=== PATIENT | female | born 1995 | race Caucasian/White ===

== ENCOUNTER 2018-06-21 22:26 | Emergency (ER) | payer MEDICAID ==
--- NOTE | 2018-06-21 23:14 | ED Physician Chart ---
ED Chief Complaint/HPI - Patient Information Date Seen:: 06/21/18 Time Seen:: 23:00 Chief Complaint:: fever, sore throat and cough History of Present Illness:: Patient has had fever, sore throat and nonproductive cough for 3 days. Her temperature was up to 101 yesterday. No vomiting. Patient had 5-6 times diarrhea today. Allergies:: Allergies Allergy/AdvReac Type Severity Reaction Status Date / Time Sulfa (Sulfonamide Allergy Verified 06/21/18 22:27 Antibiotics) Vitals:: Vital Signs - 8 hr 06/21/18 22:26 Temp 98.7 F HR 90 RR 18 BP 121/71 O2 Sat % 95 Historian:: Patient Review:: Nurse's Note Reviewed ED Review of Systems - Review of Systems General/Constitutional: Fever, Chills Skin: No skin lesions Head: No headache Eyes: No loss of vision ENT: No earache Neck: No neck pain, No swelling Cardio Vascular: No chest pain, No palpitations Pulmonary: Cough GI: Diarrhea G/U: No dysuria Endocrine: No polyuria, No polydipsia Psychiatric: Prior psych history Hematopoietic: No bruising Allergic/Immuno: No urticaria Neurological: No syncope ED Past Medical History - Past Medical History Past Medical History: Asthma/COPD, Other (bipolar disorder and depression) Family History: HTN, Cancer, Other (asthma; non-Hodgkin's lymphoma) Social History: Smoker, Alcohol, Other (smokes 1 pack of cigarettes a day; drinks alcohol occasionally) Surgical History: None Family Medical History - Family Member Mother History Unknown: Yes Ethnicity: Non- Living Status: Still Living Hx Family Hypertension: Yes Father History Unknown: Yes Ethnicity: Non- Living Status: Still Living Hx Family Cancer: Yes (Non-Hodgkins lymphoma) ED Physical Exam - Physical Examination General/Constitutional: Well-developed, well-nourished, Alert, No distress Other Gen/Cons comments:: Frequent cough but no respiratory distress Head: Atraumatic Eyes: Lids, conjuctiva normal, PERRL Skin: Nl inspection, No rash, No skin lesions, No ecchymosis ENMT: External ears, nose nl, TM canals nl, Nasal exam nl, Lips, teeth, gums nl , Oropharynx nl, Tonsils nl Neck: No nuchal rigidity Respiratory: Nl effort/Exclusion Other Respiratory comments:: 1 for left basilar rales; no wheezing Cardio Vascular: RRR, No murmur, gallop, rubs, NL S1 S2 ED Assessment - Assessment General Assessment: With a very faint rales auscultated at left base patient may have early pneumonia which would not show on a chest x-ray. Even if she does have pneumonia she does not hospital admission because she is in no respiratory distress. Patient prescribed a Z-Chaparro and also albuterol meter dose inhaler to use 2 puffs every 4 hours as necessary for shortness of breath or wheezing ED Septic Shock - . Is Septic Shock (SBP<90, OR Lactate>4 mmol\L) present?: No - <6hrs of presentation: Vital Signs: Vital Signs - 8 hr 06/21/ 22:26 Temp 98.7 F HR 90 RR 18 BP 121/71 O2 Sat % 95 ED Reassessment (Disposition) - Reassessment Reassessment Condition:: Unchanged - Diagnosis Diagnosis:: Pneumonia left base - Aftercare/Follow up Instructions Aftercare/Follow-Up Instructions:: Refer to Discharge Instructions Medication Prescribed:: Z-Chaparro and an albuterol metered-dose inhaler - Patient Disposition Discharge/Transfer:: Home Condition at Disposition:: Stable, Unchanged
== END 2018-06-21 23:15 | disposition home or self-care (01) ==
LOC: ER 22:26
DX: J18.9 Pneumonia, unspecified organism (principal); J02.9 Acute pharyngitis, unspecified; F17.210 Nicotine dependence, cigarettes, uncomplicated; R19.7 Diarrhea, unspecified; J44.9 Chronic obstructive pulmonary disease, unspecified; Z88.2 Allergy status to sulfonamides
CPT/HCPCS: Z7502